=== PATIENT | female | born 1960 | race Caucasian/White ===

== ENCOUNTER 2019-08-01 20:34 | Inpatient (IN) | payer MEDICARE ==
[~2019-08-01] VITALS: Ht 172.7 cm; Wt 81.2 kg
[2019-08-01 21:13] LABS: BASOPHILS # (AUTO) 0.1 K/uL (0.0-8.0); BASOPHILS % (AUTO) 0.8 % (0.0-2.0); EOSINOPHILS # (AUTO) 0.2 K/uL (0.0-0.7); EOSINOPHILS % (AUTO) 1.8 % (0.0-7.0); HEMATOCRIT 40.9 % (31.2-41.9); HEMOGLOBIN 13.7 g/dL (10.9-14.3); LYMPHOCYTES # (AUTO) 2.6 K/uL (20.0-40.0); LYMPHOCYTES % (AUTO) 29.6 % (20.5-51.5); MEAN CORPUSCULAR HEMOGLOBIN 29.4 uug (24.7-32.8); MEAN CORPUSCULAR HGB CONC 34 g/dL (32.3-35.6); MEAN CORPUSCULAR VOLUME 87.9 fL (75.5-95.3); MONOCYTES # (AUTO) 0.6 K/uL (2.0-10.0); MONOCYTES % (AUTO) 6.7 % (0.0-11.0); NEUTROPHILS # (AUTO) 5.3 K/uL (1.8-8.9); NEUTROPHILS % (AUTO) 61.1 % (38.5-71.5); PLATELET COUNT (AUTO) 256 K/uL (179-408); RED BLOOD CELL COUNT(AUTO) 4.65 MIL/uL (3.63-4.92); WHITE BLOOD COUNT (AUTO) 8.7 K/uL (3.8-11.8)
[2019-08-01 21:19] LABS: CREATININE 0.8 mg/dL (0.6-1.3); POTASSIUM 3.5 mmol/L (3.5-5.1)
[2019-08-01] MEDS ORDERED: LAMO200T2 PO (21:27)
[2019-08-01] MEDS ORDERED: BUPR-51 PO (21:27)
[2019-08-01] MEDS ORDERED: ENOX40DI SQ (21:27)
[2019-08-01] MEDS ORDERED: DOCU250C14 PO (21:27)
[2019-08-01] MEDS ORDERED: LANTUS SUBCUT (21:27)
[2019-08-01] MEDS ORDERED: TRAZ-214 PO (21:27)
[2019-08-01] MEDS ORDERED: LEVO750T46 PO (21:27)
[2019-08-01 21:34] LABS: THYROID STIMULATING HORMONE 7.58 mIU/mL (0.358-3.740)
[2019-08-01] MEDS ORDERED: LEVOFLOXACIN 750 MG TABLET PO ONE (22:30)
[2019-08-01] MEDS ORDERED: LEVOFLOXACIN 750 MG TABLET ONE (22:32)
[2019-08-01] MEDS ORDERED: Z GUARD REMEDY PASTE 57 GM TUBE TOP PRN ×2 (22:45→23:00)
[2019-08-01] MEDS ORDERED: ACETAMINOPHEN 325 MG TABLET PO PRN ×2 (22:45→23:30)
[2019-08-01] MEDS ORDERED: ONDANSETRON 4 MG/2 ML VIAL IV PRN ×2 (22:45→23:00)
[2019-08-01] MEDS ORDERED: INSULIN REGULAR, HUMAN 300 UNIT/3 ML VIAL SQ PRN (22:45)
[2019-08-01] MEDS ORDERED: MAGNESIUM HYDROXIDE 30 ML LIQUID UDC PO PRN ×2 (22:45→23:00)
[2019-08-01] MEDS ORDERED: DEXTROSE 50% 50 ML DISP.SYRIN IV PRN ×2 (22:45→23:00)
[2019-08-01] MEDS ORDERED: INSULIN REGULAR, HUMAN 300 UNITS/3 ML VIAL SQ PRN (22:45)
[2019-08-01 23:00] VITALS: BP 116/66
[2019-08-01] MEDS ORDERED: ONDANSETRON ODT 4 MG TAB.RAPDIS SL PRN (23:45)
[2019-08-02 03:43] LABS: *BILIRUBIN,URIN NEGATIVE (NEGATIVE); *BLOOD, URINE NEGATIVE (NEGATIVE); *CLARITY,URINE CLEAR (CLEAR); *COLOR,URINE YELLOW (YELLOW); *KETONES,URINE NEGATIVE (NEGATIVE); *UROBILINOGEN,URINE 0.2 E.U./dl (NORMAL); LEUKOCYTE ESTERASE ,URINE TRACE (NEGATIVE); NITRITE, URINE NEGATIVE (NEGATIVE); PH,URINE 6.5 (5.0-8.0); UGLUCOSE TRACE (NEGATIVE)
[2019-08-02 04:15] LABS: BACTERIA,URINE NONE SEEN /HPF (NONE SEEN); RBC,URINE 0-3 /HPF (0-3); SQUAMOUS EPITHELIAL CELL,UR MODERATE /HPF (NONE SEEN); YEAST,URINE FEW /HPF (NONE SEEN)
[2019-08-02] MEDS: BLOOD SUGAR DIAGNOSTIC 1 EACH STRIP VI SCH ×4 (06:31→20:34)
[2019-08-02] MEDS ORDERED: BLOOD SUGAR DIAGNOSTIC 1 EACH STRIP VI SCH (07:30)
[2019-08-02 08:00] VITALS: BP 98/52
[2019-08-02] MEDS ORDERED: INSULIN GLARGINE SUBCUT SCH (09:00)
[2019-08-02] MEDS ORDERED: LEVOFLOXACIN 750 MG TABLET PO SCH (09:00)
[2019-08-02] MEDS ORDERED: DOCUSATE SODIUM 250 MG CAPSULE PO SCH (09:00)
[2019-08-02] MEDS: DOCUSATE SODIUM 250 MG CAPSULE PO SCH (10:20)
[2019-08-02] MEDS: INSULIN GLARGINE,HUM 300 UNITS/3 ML CARTRIDGE SQ SCH ×2 (10:23→20:37)
[2019-08-02] MEDS: INSULIN REGULAR, HUMAN 300 UNIT/3 ML VIAL SQ PRN ×2 (12:18→17:41)
[2019-08-02 16:47] VITALS: BP 132/66
[2019-08-02] MEDS: buPROPion XL 150 MG TAB.SR.24H PO SCH (17:14)
[2019-08-02] MEDS: LITHIUM CARBONATE 150 MG CAPSULE PO SCH (17:14)
[2019-08-02 20:32] VITALS: BP 133/64
[2019-08-02] MEDS: LEVOFLOXACIN 750 MG TABLET PO SCH (20:34)
[2019-08-02] MEDS: INSULIN REGULAR, HUMAN 300 UNITS/3 ML VIAL SQ PRN (20:41)
[2019-08-02] MEDS: LORAZEPAM 0.5 MG TABLET PO PRN (21:27)
[2019-08-02] MEDS ORDERED: TEMAZEPAM 7.5 MG CAPSULE PO PRN (21:45)
[2019-08-03] MEDS: LORAZEPAM 0.5 MG TABLET PO PRN ×2 (03:13→23:56)
[2019-08-03] MEDS: BLOOD SUGAR DIAGNOSTIC 1 EACH STRIP VI SCH ×4 (06:40→20:45)
[2019-08-03 07:30] VITALS: BP 134/71
[2019-08-03] MEDS: INSULIN REGULAR, HUMAN 300 UNIT/3 ML VIAL SQ PRN ×3 (08:27→17:03)
[2019-08-03] MEDS: INSULIN GLARGINE,HUM 300 UNITS/3 ML CARTRIDGE SQ SCH ×2 (08:28→20:45)
[2019-08-03] MEDS: LITHIUM CARBONATE 150 MG CAPSULE PO SCH (08:51)
[2019-08-03] MEDS: buPROPion XL 150 MG TAB.SR.24H PO SCH (08:52)
[2019-08-03] MEDS: DOCUSATE SODIUM 250 MG CAPSULE PO SCH (08:52)
[2019-08-03] MEDS: ACETAMINOPHEN 325 MG TABLET PO PRN (10:37)
[2019-08-03 16:00] VITALS: BP 139/76
[2019-08-03] MEDS ORDERED: LITHIUM CARBONATE 150 MG CAPSULE PO SCH (17:00)
[2019-08-03] MEDS: LITHIUM CARBONATE 300 MG CAPSULE PO SCH (17:00)
[2019-08-03] MEDS: LEVOFLOXACIN 750 MG TABLET PO SCH (20:43)
[2019-08-03] MEDS: INSULIN REGULAR, HUMAN 300 UNITS/3 ML VIAL SQ PRN (20:48)
[2019-08-03 20:58] VITALS: BP 121/72
[2019-08-04] MEDS: BLOOD SUGAR DIAGNOSTIC 1 EACH STRIP VI SCH ×5 (06:33→20:33)
[2019-08-04] MEDS: DOCUSATE SODIUM 250 MG CAPSULE PO SCH (09:49)
[2019-08-04] MEDS: LITHIUM CARBONATE 300 MG CAPSULE PO SCH ×2 (09:50→16:50)
[2019-08-04] MEDS: INSULIN GLARGINE,HUM 300 UNITS/3 ML CARTRIDGE SQ SCH ×2 (09:56→20:35)
[2019-08-04] MEDS: INSULIN REGULAR, HUMAN 300 UNIT/3 ML VIAL SQ PRN ×3 (10:01→17:32)
[2019-08-04] MEDS: buPROPion XL 150 MG TAB.SR.24H PO SCH (10:06)
[2019-08-04 16:00] VITALS: BP 139/85
[2019-08-04] MEDS: TRAZODONE 100 MG TABLET PO SCH (20:33)
[2019-08-04] MEDS: LEVOFLOXACIN 750 MG TABLET PO SCH (20:33)
[2019-08-04] MEDS: INSULIN REGULAR, HUMAN 300 UNITS/3 ML VIAL SQ PRN (20:38)
[2019-08-04 20:44] VITALS: BP 131/67
[2019-08-05] MEDS: LORAZEPAM 0.5 MG TABLET PO PRN ×2 (01:20→08:56)
[2019-08-05] MEDS: ACETAMINOPHEN 325 MG TABLET PO PRN (01:20)
[2019-08-05] MEDS: BLOOD SUGAR DIAGNOSTIC 1 EACH STRIP VI SCH ×4 (07:26→21:15)
[2019-08-05] MEDS: INSULIN GLARGINE,HUM 300 UNITS/3 ML CARTRIDGE SQ SCH ×2 (07:29→21:10)
[2019-08-05] MEDS: INSULIN REGULAR, HUMAN 300 UNIT/3 ML VIAL SQ PRN ×3 (07:32→18:49)
[2019-08-05 08:02] VITALS: BP 102/50
[2019-08-05] MEDS: DOCUSATE SODIUM 250 MG CAPSULE PO SCH (08:56)
[2019-08-05] MEDS: buPROPion XL 150 MG TAB.SR.24H PO SCH (08:56)
[2019-08-05] MEDS: LITHIUM CARBONATE 300 MG CAPSULE PO SCH ×2 (08:56→17:00)
[2019-08-05 15:57] VITALS: BP 119/80
[2019-08-05 19:38] VITALS: BP 123/79
[2019-08-05] MEDS: TRAZODONE 100 MG TABLET PO SCH (21:12)
[2019-08-05] MEDS: LEVOFLOXACIN 750 MG TABLET PO SCH (21:13)
[2019-08-06] MEDS: BLOOD SUGAR DIAGNOSTIC 1 EACH STRIP VI SCH ×4 (05:11→20:21)
[2019-08-06 07:30] VITALS: BP 103/61
[2019-08-06] MEDS: LITHIUM CARBONATE 300 MG CAPSULE PO SCH ×2 (08:07→16:26)
[2019-08-06] MEDS: buPROPion XL 150 MG TAB.SR.24H PO SCH (08:07)
[2019-08-06] MEDS: DOCUSATE SODIUM 250 MG CAPSULE PO SCH (08:07)
[2019-08-06] MEDS: INSULIN REGULAR, HUMAN 300 UNIT/3 ML VIAL SQ PRN ×3 (08:08→16:27)
[2019-08-06] MEDS: INSULIN GLARGINE,HUM 300 UNITS/3 ML CARTRIDGE SQ SCH ×2 (08:08→20:18)
[2019-08-06] MEDS: ACETAMINOPHEN 325 MG TABLET PO PRN (11:50)
[2019-08-06 15:49] VITALS: BP 134/74
[2019-08-06] MEDS: TRAZODONE 100 MG TABLET PO SCH (20:12)
[2019-08-06] MEDS: LEVOFLOXACIN 750 MG TABLET PO SCH (20:12)
[2019-08-06] MEDS: INSULIN REGULAR, HUMAN 300 UNITS/3 ML VIAL SQ PRN (20:20)
[2019-08-06 20:49] VITALS: BP 122/64
[2019-08-07] MEDS: ACETAMINOPHEN 325 MG TABLET PO PRN (04:19)
[2019-08-07] MEDS: BLOOD SUGAR DIAGNOSTIC 1 EACH STRIP VI SCH ×2 (06:31→11:17)
[2019-08-07 07:30] VITALS: BP 103/71
[2019-08-07] MEDS: INSULIN GLARGINE,HUM 300 UNITS/3 ML CARTRIDGE SQ SCH (08:38)
[2019-08-07] MEDS: INSULIN REGULAR, HUMAN 300 UNIT/3 ML VIAL SQ PRN ×2 (08:39→11:20)
[2019-08-07] MEDS: LITHIUM CARBONATE 300 MG CAPSULE PO SCH (08:43)
[2019-08-07] MEDS: buPROPion XL 150 MG TAB.SR.24H PO SCH (08:43)
[2019-08-07] MEDS: DOCUSATE SODIUM 250 MG CAPSULE PO SCH (08:43)
== END 2019-08-07 16:15 | disposition home or self-care (01) | DRG 885 ==
LOC: ER 20:34 → GPS 22:50
PROVIDERS: ADMIT Psychiatry & Neurology Psychiatry; ATTEND Internal Medicine
DX: F31.30 Bipolar disorder, current episode depressed, mild or moderate severity, unspecified (principal); J69.0 Pneumonitis due to inhalation of food and vomit; F17.210 Nicotine dependence, cigarettes, uncomplicated; T43.212D Poisoning by selective serotonin and norepinephrine reuptake inhibitors, intentional self-harm, subsequent encounter; T43.622D Poisoning by amphetamines, intentional self-harm, subsequent encounter; F41.9 Anxiety disorder, unspecified; G89.29 Other chronic pain; M54.9 Dorsalgia, unspecified; E78.5 Hyperlipidemia, unspecified; F12.90 Cannabis use, unspecified, uncomplicated; E11.9 Type 2 diabetes mellitus without complications; Z90.49 Acquired absence of other specified parts of digestive tract; Z90.710 Acquired absence of both cervix and uterus; Z79.899 Other long term (current) drug therapy; E03.9 Hypothyroidism, unspecified
CPT/HCPCS: 36415; 71045; 83605; 84443; 85025; 87086; 93005; A4663; J1815; Q0162